=== PATIENT | female | born 2005 | race African-American/Black ===

== ENCOUNTER 2024-04-29 17:11 | Emergency (ER) | payer OTHER ==
[~2024-04-29] VITALS: Ht 167.6 cm; Wt 122.7 kg
[2024-04-29 17:15] VITALS: BP 109/59; PULSE 54; RESP 18; TEMP 98.3; O2SAT 98
[2024-04-29] MEDS: BACITRACIN 28 GM OINTMENT TP ONE (17:55)
[2024-04-29] MEDS: IBUPROFEN 600 MG TABLET PO ONE (17:56)
[2024-04-29] MEDS: ACETAMINOPHEN 500 MG TABLET PO ONE (17:56)
[2024-04-29] MEDS ORDERED: PERTUSS(ACELL),DIPH,TET/PF 0.5 ML SYRINGE [ADULT] IM. ONE (18:00)
[2024-04-29] MEDS ORDERED: IBUP-1492 PO (18:30)
[2024-04-29] MEDS ORDERED: ACET-3385 PO (18:30)
== END 2024-04-29 18:45 | disposition home or self-care (01) ==
LOC: EMS 17:11
DX: T23.102A Burn of first degree of left hand, unspecified site, initial encounter (principal); T31.0 Burns involving less than 10% of body surface
CPT/HCPCS: 16000; 99283

== ENCOUNTER 2025-01-07 13:23 | Emergency (ER) | payer OTHER ==
[~2025-01-07] VITALS: Ht 167.6 cm; Wt 123.2 kg
[~2025-01-07 13:23] MED LIST: ACET-3385 PO; IBUP-1492 PO
[2025-01-07 13:38] VITALS: BP 109/63; PULSE 62; RESP 18; TEMP 97.7; O2SAT 100
[2025-01-07 14:06] LABS: PLATELET COUNT (AUTO) 301 K/uL (150-450); RED BLOOD CELL COUNT(AUTO) 4.49 MIL/uL (4.00-5.20); RED CELL DISTRIBUTION WIDTH 13.2 % (11.5-14.5); WHITE BLOOD COUNT (AUTO) 4.3 K/uL (4.5-11.0)
[2025-01-07 14:09] LABS: APPEARANCE,URINE CLEAR (CLEAR); GLUCOSE, URINE (UA) NEGATIVE (NEGATIVE); LEUKOCYTE ESTERASE ,URINE NEGATIVE (NEGATIVE); NITRATE,URINE NEGATIVE (NEGATIVE); OCCULT BLOOD,URINE NEGATIVE (NEGATIVE); SPECIFIC GRAVITIY, URINE 1.023 (1.003-1.030)
[2025-01-07 14:35] LABS: ASPARTATE AMINOTRANSFERASE 30.0 U/L (15-37); CREATININE 1.15 mg/dL (0.60-1.30); GLOMERULAR FILTR. RATE CALC > 60 mL/min (>60); GLUCOSE,RANDOM 90 mg/dL (70-110); SODIUM SERUM 140 mmol/L (136-145); TOTAL PROTEIN, SERUM 7.1 g/dL (6.4-8.2); UREA NITROGEN, BLOOD 14 mg/dL (7-18)
[2025-01-07 14:36] LABS: CALCIUM, TOTAL 8.8 mg/dL (8.8-10.5)
[2025-01-07] MEDS ORDERED: 0.9% SODIUM CHLORIDE 10 ML SYRINGE IVP ONE ×2 (15:21→15:30)
[2025-01-07] MEDS ORDERED: IOHEXOL 350 MG/ML 100 ML VIAL ONE ×2 (15:30→16:00)
[2025-01-07] MEDS ORDERED: SODIUM CHLORIDE 0.9% 0 ML ONE (15:31)
[2025-01-07] MEDS: ONDANSETRON HCL 4 MG/2 ML VIAL IVP ONE (15:38)
[2025-01-07] MEDS: SODIUM CHLORIDE 0.9% 1,000 ML IV ONE (15:38)
[2025-01-07] MEDS: ACETAMINOPHEN 500 MG TABLET PO ONE (15:38)
[2025-01-07] MEDS ORDERED: ONDA-104 PO (17:05)
[2025-01-11 10:07] LABS: TOPIRAMATE (TOPAMAX) LEVEL <1.5 ug/mL (2.0-25.0)
== END 2025-01-07 17:17 | disposition home or self-care (01) ==
LOC: EMS 13:32
DX: R11.0 Nausea (principal); R10.33 Periumbilical pain; R10.31 Right lower quadrant pain; G43.909 Migraine, unspecified, not intractable, without status migrainosus; Z79.899 Other long term (current) drug therapy; Z91.013 Allergy to seafood; Z91.011 Allergy to milk products
CPT/HCPCS: 99285; 74177; 96374; 80048; 80076; 81003; 83690; 84703; 85025; 36415; 80201; Q9967; J2405; J7030; J7050

== ENCOUNTER 2025-02-01 04:35 | Emergency (ER) | payer OTHER ==
[~2025-02-01] VITALS: Ht 175.3 cm; Wt 122.7 kg
[~2025-02-01 04:35] MED LIST changes: +ONDA-104 PO
[2025-02-01 04:37] VITALS: TEMP 97.7
[2025-02-01] MEDS: SODIUM CHLORIDE 0.9% 1,000 ML IV ONE ×2 (05:55→09:53)
[2025-02-01] MEDS: ACETAMINOPHEN 1000 MG/ISO-OSM 100 ML IV ONE (05:55)
[2025-02-01] MEDS: ONDANSETRON HCL 4 MG/2 ML VIAL IVP ONE ×2 (05:55→07:49)
[2025-02-01 06:42] LABS: RED BLOOD CELL COUNT(AUTO) 3.83 MIL/uL (4.00-5.20); RED CELL DISTRIBUTION WIDTH 13.1 % (11.5-14.5); WHITE BLOOD COUNT (AUTO) 2.4 K/uL (4.5-11.0)
[2025-02-01 07:22] LABS: CALCIUM, TOTAL 8.4 mg/dL (8.8-10.5); CREATININE 0.96 mg/dL (0.60-1.30); GLOMERULAR FILTR. RATE CALC > 60 mL/min (>60); GLUCOSE,RANDOM 121 mg/dL (70-110); SODIUM SERUM 138 mmol/L (136-145); UREA NITROGEN, BLOOD 15 mg/dL (7-18)
[2025-02-01 07:26] LABS: PLATELET COUNT (AUTO) 16 K/uL (150-450)
[2025-02-01 07:37] LABS: ASPARTATE AMINOTRANSFERASE 21 U/L (15-37); HCG,QUANTITATIVE < 1 mIU/mL (0-6); TOTAL PROTEIN, SERUM 7.3 g/dL (6.4-8.2)
[2025-02-01 08:00] LABS: PLATELET COUNT (AUTO) 296 K/uL (150-450); RED BLOOD CELL COUNT(AUTO) 4.52 MIL/uL (4.00-5.20); RED CELL DISTRIBUTION WIDTH 13.1 % (11.5-14.5); WHITE BLOOD COUNT (AUTO) 6.6 K/uL (4.5-11.0)
[2025-02-01 08:21] LABS: APPEARANCE,URINE TURBID (CLEAR); GLUCOSE, URINE (UA) NEGATIVE (NEGATIVE); LEUKOCYTE ESTERASE ,URINE NEGATIVE (NEGATIVE); NITRATE,URINE NEGATIVE (NEGATIVE); OCCULT BLOOD,URINE NEGATIVE (NEGATIVE); SPECIFIC GRAVITIY, URINE 1.031 (1.003-1.030)
[2025-02-01 08:27] LABS: ALCOHOL, URINE DRUG SCREEN NEGATIVE (NEGATIVE); AMPHET/METH SCREEN,URINE NEGATIVE (NEGATIVE); BARBITURATE SCREEN, URINE NEGATIVE (NEGATIVE); CANNABINOID SCREEN,URINE POSITIVE (NEGATIVE); COCAINE SCREEN,URINE POSITIVE (NEGATIVE); METHADONE SCREEN, URINE NEGATIVE (NEGATIVE)
[2025-02-01] MEDS ORDERED: MORPHINE SULFATE 2 MG/ML SYRINGE IVP ONE (08:30)
[2025-02-01] MEDS: FAMOTIDINE 20 MG/2 ML VIAL IVP ONE (08:31)
[2025-02-01] MEDS: MORPHINE SULFATE 4 MG/ML VIAL IVP ONE (08:33)
[2025-02-01] MEDS: MAG HYDROX/ALUMINUM HYD/SIMETH ES 30 ML SUSPENSION UDCUP PO ONE (08:34)
[2025-02-01 08:40] LABS: PH,URINE DRUG SCREEN 5.0 (5.0-8.0)
[2025-02-01 14:29] VITALS: BP 114/74; PULSE 48; RESP 16; O2SAT 96
== END 2025-02-01 14:47 | disposition home or self-care (01) ==
LOC: EMS 04:35
DX: R11.2 Nausea with vomiting, unspecified (principal); R10.11 Right upper quadrant pain; R10.12 Left upper quadrant pain; R10.31 Right lower quadrant pain; R10.32 Left lower quadrant pain; F12.90 Cannabis use, unspecified, uncomplicated; G43.909 Migraine, unspecified, not intractable, without status migrainosus; Z91.013 Allergy to seafood; Z79.899 Other long term (current) drug therapy; Z91.011 Allergy to milk products
CPT/HCPCS: 99285; 74176; 96375; 96374; 96361; 80048; 80076; 83690; 84702; 85025; 96376; 80307; 81003; 36415; J1200; J3490; J1630; J2270; J2405; J7030; J0131